=== PATIENT | female | born 1945 | race Two or more races ===

== ENCOUNTER 2017-07-22 10:02 | Outpatient (CLI) | payer OTHER | END 2017-07-22 10:08 | disposition home or self-care (01) | LOC: TOM 10:02 → MRI 10:02 | DX: R51 Headache (principal) ==

== ENCOUNTER 2017-07-22 10:09 | Outpatient (CLI) | payer OTHER | END 2017-07-22 10:11 | disposition home or self-care (01) | LOC: RAD 10:09 | DX: M21.371 Foot drop, right foot (principal) ==

== ENCOUNTER → 2017-10-15 | Outpatient (CLI) | payer OTHER | END | disposition home or self-care (01) | LOC: NUCLEAR 07:00 | DX: I25.10 Atherosclerotic heart disease of native coronary artery without angina pectoris (principal) | CPT/HCPCS: 78452; 93017; A9500; J0153 ==

== ENCOUNTER 2017-12-28 10:19 | Outpatient (CLI) | payer OTHER | END 2017-12-28 11:18 | disposition home or self-care (01) | LOC: RAD 501 10:19 | DX: M25.511 Pain in right shoulder (principal) ==

== ENCOUNTER 2018-03-20 22:11 | Emergency (ER) | payer OTHER ==
[~2018-03-20] VITALS: Ht 152.4 cm; Wt 59.0 kg
[~2018-03-20 22:11] MED LIST: ASA-EC81 MG PO; CEFADROXIL500 MG PO; ELIQUIS2.5 MG PO; METFORMIN HCL850 MG; PERCOCET 5-3251 EACH PO
== END 2018-03-21 12:29 | disposition home or self-care (01) ==
LOC: ER 22:11
DX: J45.998 Other asthma (principal); R06.02 Shortness of breath; R09.02 Hypoxemia; Z98.890 Other specified postprocedural states

== ENCOUNTER → 2018-04-11 | Outpatient (CLI) | payer OTHER | END | disposition home or self-care (01) | LOC: TOM 04-08 09:00 | DX: R10.32 Left lower quadrant pain (principal) ==

== ENCOUNTER 2018-05-06 08:51 | Outpatient (CLI) | payer OTHER | END 2018-05-06 08:52 | disposition home or self-care (01) | LOC: RAD 08:51 | DX: I10 Essential (primary) hypertension (principal) ==

== ENCOUNTER → 2018-09-20 | Outpatient (CLI) | payer OTHER | END | disposition home or self-care (01) | LOC: MAMO-SONO 10:25 | DX: Z12.31 Encounter for screening mammogram for malignant neoplasm of breast (principal); Z87.898 Personal history of other specified conditions; R92.8 Other abnormal and inconclusive findings on diagnostic imaging of breast ==

== ENCOUNTER 2019-09-20 10:06 | Outpatient (CLI) | payer OTHER | END 2019-09-20 11:25 | disposition home or self-care (01) | LOC: NUCLEAR 10:06 | DX: M81.0 Age-related osteoporosis without current pathological fracture (principal) ==

== ENCOUNTER 2021-04-24 12:52 | Outpatient (CLI) | payer OTHER | END 2021-04-24 12:57 | disposition home or self-care (01) | LOC: NUCLEAR 12:52 | DX: M81.0 Age-related osteoporosis without current pathological fracture (principal) ==

== ENCOUNTER 2023-02-15 10:53 | Outpatient (CLI) | payer OTHER | END 2023-02-15 10:57 | disposition home or self-care (01) | LOC: RAD 10:53 | DX: M54.59 Other low back pain (principal) ==

== ENCOUNTER 2023-07-28 09:35 | Outpatient (CLI) | payer OTHER | END 2023-07-28 09:39 | disposition home or self-care (01) | LOC: SONOGRAMA 09:35 | DX: R19.00 Intra-abdominal and pelvic swelling, mass and lump, unspecified site (principal) ==

== ENCOUNTER 2023-08-03 07:16 | Outpatient (CLI) | payer OTHER | END 2023-08-03 07:17 | disposition home or self-care (01) | LOC: NUCLEAR 07:16 | PROVIDERS: ATTEND Internal Medicine | DX: I20.9 Angina pectoris, unspecified (principal); I50.22 Chronic systolic (congestive) heart failure | CPT/HCPCS: 78452; 93017; A9500; J0153 ==

== ENCOUNTER 2023-09-22 08:54 | Outpatient (CLI) | payer OTHER | END 2023-09-22 09:03 | disposition home or self-care (01) | LOC: TOM 08:54 | DX: G45.9 Transient cerebral ischemic attack, unspecified (principal) ==

== ENCOUNTER 2024-05-01 08:49 | Outpatient (CLI) | payer OTHER | END 2024-05-01 08:55 | disposition home or self-care (01) | LOC: SONOGRAMA 08:49 | DX: N18.2 Chronic kidney disease, stage 2 (mild) (principal) ==

== ENCOUNTER 2024-12-11 08:44 | Outpatient (CLI) | payer OTHER | END 2024-12-11 08:53 | disposition home or self-care (01) | LOC: RAD 08:44 | DX: S00.83XA Contusion of other part of head, initial encounter (principal); X58.XXXA Exposure to other specified factors, initial encounter; Y93.9 Activity, unspecified; Y92.9 Unspecified place or not applicable; Y99.9 Unspecified external cause status ==